=== PATIENT | female | born 1970 | race Two or more races ===

== ENCOUNTER → 2019-01-06 | Emergency (ER) | payer SELFPAY ==
[~2019-01-06] VITALS: Ht 170.2 cm; Wt 66.2 kg
[~2019-01-06] MED LIST: LIDOCAINE 1%-EPI 1:100,000 20 ML VIAL ONE; LIDOCAINE 1%-EPI 1:200,000 SDV 10 ML VIAL IJ ONE; TDAP [DIPH/PERTUSSIS/TET] 0.5 ML VIAL IM ONE
--- NOTE | 2019-01-06 09:56 | NUR ---
PATIENT AWAKE ALERT BIB HER FAMILY NOTED LEFT FOOT TOP LAC WITH MINMAL BLEEDING PRESSURE DRESSING APPLIED VITALS TAKE AND FILED NORMAL ,LAC PREY @ BEDSIDE
[2019-01-06 10:26] VITALS: BP 122/78
--- NOTE | 2019-01-06 10:30 | NUR ---
PATIENT DC HOME INTRUCTION GIVEN AGREES TO CALL PMD IN 2 DAYS AND FOLLOW UP PMD IN 2 DAYS FOR WOUND CARE ,DREESING APPLY TO rT FOOT
== END | disposition home or self-care (01) ==
LOC: ER 09:21
DX: S91.312A Laceration without foreign body, left foot, initial encounter (principal); W26.8XXA Contact with other sharp object(s), not elsewhere classified, initial encounter; Y93.89 Activity, other specified; Y92.89 Other specified places as the place of occurrence of the external cause; Y99.8 Other external cause status
CPT/HCPCS: 12001; 90471; 90715; 99283; A6403; J3490 ×2